=== PATIENT | male | born 1975 | race Two or more races ===

== ENCOUNTER 2017-02-18 18:01 | Emergency (ER) | payer OTHER ==
[~2017-02-18] VITALS: Ht 170.2 cm; Wt 81.6 kg
[2017-02-18 18:23] VITALS: BP 135/89
[2017-02-18] MEDS ORDERED: SODIUM CHLORIDE 0.9% 2,000 ML IV ONE (19:27)
[2017-02-18] MEDS ORDERED: IBUPROFEN 800 MG TAB PO ONE ×2 (19:30→19:41)
[2017-02-18] MEDS ORDERED: InsuLIN REG 1unit/0.01ml Soln (100units/ml) IV ONE (19:30)
[2017-02-18] MEDS ORDERED: TETANUS-DIPTH-ACEL PERTUSSIS 0.5ML SYRG IM ONE ×2 (19:40→19:45)
== END 2017-02-18 19:53 | disposition home or self-care (01) ==
LOC: ER 18:12
DX: S61.012A Laceration without foreign body of left thumb without damage to nail, initial encounter (principal); E11.65 Type 2 diabetes mellitus with hyperglycemia; W26.0XXA Contact with knife, initial encounter; Y93.89 Activity, other specified; Y99.8 Other external cause status; Y92.89 Other specified places as the place of occurrence of the external cause
CPT/HCPCS: 90471; 90715